=== PATIENT | female | born 1945 | race Caucasian/White ===

== ENCOUNTER 2024-11-29 16:12 | Emergency (ER) | payer OTHER, SELFPAY ==
[2024-11-29 16:18] VITALS: BP 143/91
--- NOTE | 2024-11-29 17:51 | ED.GENMED ---
History of Present Illness
General
Chief Complaint: Musculo-Skeletal Complaint
Time Seen by Provider: 11/29/24 16:56
History of Present Illness
History of Present Illness:
78-year-old female with history of COPD and Crohn's disease presenting for left arm pain. Patient notes over a week ago she had a mechanical fall, landed on her elbow with subsequent pain and swelling. She went to an outside hospital, was
diagnosed with olecranon fracture and splinted. She has maintained the splint and a sling, however is having worsening swelling to her hand. This prompted her to come back to the ER. Does note that she has an appointment upcoming with an
orthopedic doctor on , Dr. Vallejo. Denies any numbness or tingling. She is not on any blood thinners. Notes that she also fell on the left side of her neck, had CT imaging that was unremarkable. Denies additional acute medical complaints
Phy Exam
Physical Exam
Physical Exam:
General: Well-appearing, no clinical signs of dehydration, nontoxic and in no acute distress
HEENT: protecting airway
Neck: appears supple, healing ecchymosis to the left lateral musculature of the neck with range of motion intact
CV: Normal heart rate
Resp: No accessory muscle use, no increased work of breathing
Abd: No distention
Extremities: Swelling overlying the left elbow with ecchymosis. Swelling at the forearm and wrist extending to the proximal hand. Range of motion grossly intact, limited particularly at the elbow. No significant tenderness at the
forearm/wrist/hand. No erythema or warmth
Neuro: alert, no focal neurologic deficit
: deferred
Rectal: deferred
Psych: Normal affect
Skin: Intact
Course
Orders/Labs/Results
Orders:
Orders
11/29/24 17:14
Elbow, 3 view, Left [CR Elbow - Left Min 3 Views ] Urgent
Comment:
Reason For Exam: fall, known fx, pain and swelling
Forearm, Left 2 View [CR Forearm - Left 2 View] Urgent
Comment:
Reason For Exam: fall, swelling
Wrist, Left 3 Views CR [CR Wrist - Left Min 3 Views] Urgent
Comment:
Reason For Exam: fall, swelling
Vital Signs
Initial and Last Documented VS:
Initial Vital Signs
Temp Pulse Resp BP Pulse Ox
98.4 F 75 18 143/91 96
11/29/24 16:18 11/29/24 16:18 11/29/24 16:18 11/29/24 16:18 11/29/24 16:18
Last Documented Vital Signs
Temp Pulse Resp BP Pulse Ox
98.4 F 75 18 143/91 96
11/29/24 16:18 11/29/24 16:18 11/29/24 16:18 11/29/24 16:18 11/29/24 17:54
MDM/Problems Addressed
MDM/Problems Addressed:
78-year-old female presenting with persistent left arm pain and swelling after a fall over a week ago. Vital signs on arrival are normal.
On exam patient is resting comfortably, no acute distress or discomfort. Patient arrives in a splint and a sling which were removed. Compartments to the arm are soft without concern for compartment syndrome. In addition, normal sensation and
pulses. Patient has obvious swelling overlying the elbow, however known olecranon fracture. There is also swelling to the hand, suspected to be dependent edema given recent immobility of the left upper extremity, maintained in a sling. No
significant tenderness, however patient notes she did not have imaging of the rest of her arm. Will obtain x-ray imaging to ensure no additional missed fractures. No signs of infection.
19:00 - X-ray again confirms olecranon fracture. Patient has an upcoming appointment with orthopedics on . Will replace long-arm splint. No additional fractures on x-ray imaging. Feel stable for discharge. Return precautions discussed
and patient verbalized understanding
*Pulse Oximetry
SaO2: 96
Oxygen Mode of Delivery: Room air
Patient hypoxic: no
*Critical Care Note
Total Time (30-74mins, 75-104mins- exclusive of procedures): Not Applicable
ED Attending Note
-
Portions of this chart may have been created with voice recognition software.� Occasional wrong word or��sound alike� substitutions may have occurred due to the inherent limitations of voice recognition software.
Discharge Plan
Departure
Referrals:
Trever Parham MD [Family Provider, [facility]]
Interventions
Interventions:
*Risk Screen - Suicide Last Done: 11/29/24 16:22
*General Assessment Last Done: 11/29/24 16:22
*Neglect/Abuse Screening Last Done: 11/29/24 16:22
ED-Musculoskeletal Assessment Last Done: 11/29/24 17:20
Discharge Date and Time
Print Language: COMORAN
== END 2024-11-29 19:21 | disposition home or self-care (01) ==
LOC: EMR 16:12
PROVIDERS: EMERGENCY PHYSICIAN Student in an Organized Health Care Education/Training Program; FAMILY PHYSICIAN Family Medicine
DX: S52.032A Displaced fracture of olecranon process with intraarticular extension of left ulna, initial encounter for closed fracture (principal); X58.XXXA Exposure to other specified factors, initial encounter; J44.9 Chronic obstructive pulmonary disease, unspecified; K50.90 Crohn's disease, unspecified, without complications
CPT/HCPCS: 99283; 29125; 73080; 73090; 73110

== ENCOUNTER → 2024-11-30 16:03 | Outpatient (REF) | payer OTHER, SELFPAY ==
[2024-11-30 17:15] LABS: Hematocrit 35.8 % (37.0-47.0); Hemoglobin 11.9 g/dL (12.0-16.0); Mean Corp Hgb Conc. 33.2 g/dL (33.0-37.0); Mean Corpuscular Volume 91.6 fL (81.0-99.0); Nucleated Red Blood Cells % 0 %; Platelet Count 355 10^3/uL (130-400); Red Cell Dist. Width 13.2 % (11.5-14.5)
[2024-11-30 17:46] LABS: Blood Urea Nitrogen 17 mg/dl (7-17); Calcium 9.7 mg/dl (8.4-10.2); Carbon Dioxide 31 mmol/L (22-30); Chloride 102 mmol/L (98-107); Glucose 151 mg/dl (70-99); Potassium 4.3 mmol/L (3.5-5.1); Sodium 135 mmol/L (135-145); eGFR > 60.00
== END ==
LOC: REG 16:03
PROVIDERS: ATTENDING PHYSICIAN Orthopaedic Surgery Hand Surgery; FAMILY PHYSICIAN Family Medicine
DX: Z01.818 Encounter for other preprocedural examination (principal)
CPT/HCPCS: 36415; 80048; 85025